=== PATIENT | male | born 1955 | race Caucasian/White ===

== ENCOUNTER 2017-07-16 13:53 | Emergency (ER) | payer OTHER, BC ==
[~2017-07-16] VITALS: Ht 172.7 cm; Wt 87.3 kg
[~2017-07-16 13:53] MED LIST: FISH500C PO; HYDR-3533 PO; INSULIN PUMP; LISI2.5T3 PO; MELO7.5T PO; SIMV5TAB32 PO; [UNRECOGNIZED DRUG - OTHER]
[2017-07-16 14:04] VITALS: BP 138/66; PULSE 84; RESP 16; TEMP 98.7; O2SAT 97
[2017-07-16] MEDS ORDERED: LIDOCAINE HCL 1% 50 ML VIAL INFIL ONE (14:15)
[2017-07-16] MEDS ORDERED: BUPIVACAINE HCL PF 0.5% 10 ML VIAL INFIL ONE (14:15)
--- NOTE | 2017-07-16 14:16 | PD ---
HPI Chief Complaint: Laceration/Skin Injury Time Seen by Provider: 14:10 Travel History International Travel<30 days: No Contact w/Intl Traveler<30days: No Traveled to known affect area: No History of Present Illness HPI 62-year-old male presents to the emergency department for evaluation of a laceration to his left dorsal thumb that occurred approximately noon today. He states he cut it using a saw-zal. Patient states his tetanus immunization was 2 -3 years ago. He denies a loss range of motion of the affected digit. He has history of hypertension, hyperlipidemia, diabetes type 1 with insulin pump. Patient denies any other injury. PFSH Past Medical History Hx Anticoagulant Therapy: Yes (LOW DOSE ASA) Arthritis: Yes Depression: No High Cholesterol: Yes Diabetes: Yes Diminished Hearing: No GERD: Yes Hypertension: Yes Reproductive: No Respiratory: No Migraines: Yes ?: Not Past Surgical History Abdominal Surgery: Yes (APPENDECTOMY) Appendectomy: Yes Eye Surgery: Yes (VITRECTOMY 11/11/12) Insulin Pump: Yes Neurologic Surgery: Yes (TITANIUM PLATE IN NECK) Other Surgery: Yes (BILAT. ELBOWS, SHOULDERS) Social History Alcohol Use: Yes (5 PER WEEK) Tobacco Use: No Substance Use: No Allergies-Medications (Allergen,Severity, Reaction): Coded Allergies: No Known Allergies (Unverified , 07/16/17) Reported Meds & Prescriptions Reported Meds & Active Scripts Active Keflex (Cephalexin) 500 Mg Cap 500 Mg PO Q6H 7 Days Reported Aspirin Low Dose (Aspirin) 81 Mg Chew 81 Mg CHEW DAILY Eql Cinnamon (Cinnamon) 500 Mg Cap 2,000 Mg PO BID Glucosamine (Glucosamine Sulfate) 500 Mg Cap 500 Mg PO DAILY Magnesium Oxide 400 Mg Tab 400 Mg PO BID [place]-3 Fish Oil/Vitamin (Fish Oil-Cholecalciferol) 1,000-1,000 Mg Cap 2 Cap PO DAILY Multiple Vitamin 1 Tab 1 Tab PO DAILY Lortab (Hydrocodone-Acetaminophen) 10-325 Mg Tab 1 Tab PO Q4H PRN Ambien (Zolpidem Tartrate) 5 Mg Tab 5 Mg PO HS PRN Hydrochlorothiazide 12.5 Mg Tab 12.5 Mg PO DAILY Lisinopril 40 Mg Tab 40 Mg PO DAILY Novolog Inj (Insulin Aspart) 1,000 Unit/10 Ml Vial 0 SQ DIRECTED Sliding Scale as directed. Omeprazole 40 Mg Cap 40 Mg PO BID Allergy Relief (Loratadine) 10 Mg Tab 10 Mg PO DAILY Review of Systems Except as stated in HPI: all other systems reviewed are Neg Physical Exam Narrative GENERAL: Well-nourished, well-developed male patient, ambulatory. Afebrile. SKIN: Focused skin assessment warm/dry. Patient has 2.5 cm laceration to the left dorsal thumb between the MCP and PIP joint. No active bleeding. HEAD: Normocephalic. Atraumatic. EYES: No scleral icterus. No injection or drainage. NECK: Supple, trachea midline. No JVD or lymphadenopathy. CARDIOVASCULAR: Regular rate and rhythm without murmurs, gallops, or rubs. RESPIRATORY: Breath sounds equal bilaterally. No accessory muscle use. Lungs sounds are clear to auscultation. GASTROINTESTINAL: Abdomen soft, non-tender, nondistended. MUSCULOSKELETAL: No cyanosis, or edema. Patient has full strength in the affected digit. He has full flexion and extension of the affected digit. BACK: Nontender without obvious deformity. No CVA tenderness. Data Data Last Documented VS Vital Signs Date Time Temp Pulse Resp B/P (MAP) Pulse Ox O2 Delivery O2 Flow Rate FiO2 07/16/17 14:04 98.7 84 16 138/66 (90) 97 Orders Orders Finger ([id number]) (07/16/17 ) Bupivacaine Pf 0.5% Inj (Marcaine Pf 0.5 (07/16/17 14:15) Lidocaine 1% Inj (50 Ml) (Xylocaine 1% I (07/16/17 14:15) MDM Medical Decision Making Medical Screen Exam Complete: Yes Emergency Medical Condition: Yes Interpretation(s) Last Impressions Finger X-Ray 07/16/17 0000 Signed Impressions: Service Date/Time: Sunday, July 16, 2017 14:18 - CONCLUSION: Negative for fracture or foreign body. Arron Brenner MD FACR Differential Diagnosis Laceration versus abrasion versus tendon laceration versus foreign body versus open fracture Narrative Course 62-year-old male presents to the emergency department for evaluation of laceration to his left thumb. He gives verbal consent for laceration repair. X -rays completed which shows no foreign body or any injury. Patient is instructed on proper wound care. He will be discharged with a prescription for Keflex for prophylaxis as patient is insulin-dependent diabetic. Patient verbalizes agreement and understanding. The patient was discharged in stable condition with instructions, including return instructions and follow up instructions. Procedures Procedure Narrative LACERATION LOCATION: Left thumb LENGTH: 2.5 cm NUMBER OF STITCHES/CRISTY: 4 simple interrupted sutures REPAIR: The area of the laceration was prepped with Betadine and sterilely draped. The laceration was infiltrated with 1% lidocaine and 0.5% bupivacaine. The wound was copiously irrigated and explored without evidence of foreign body , tendon injury or neurovascular injury. The wound was closed using 4-0 Prolene. This was a single layer repair. A sterile dressing was applied. The patient was advised to keep the dressing clean and dry. Patient tolerated the procedure well. Diagnosis Primary Impression: Finger laceration Qualified Codes: S61.012A - Laceration without foreign body of left thumb without damage to nail, initial encounter Referrals: Primary Care Physician call for appointment Patient Instructions: Care For Your Stitches (ED), Finger Laceration (ED), General Instructions Additional Instructions: Clean laceration twice daily with soap and water and apply [id number] antibiotic. No peroxide. Keep clean and dry. No swimming or hot tubs. Take antibiotic as directed until gone. Suture removal in 7-10 days. Follow-up with your primary care physician. Return to the emergency department for any acute worsening of symptoms. Med/Other Pt SpecificInfo: Prescription(s) given Scripts Cephalexin (Keflex) 500 Mg Cap 500 MG PO Q6H for Infection for 7 Days, #28 CAP 0 Refills Prov: Evangelina Sykes 07/16/17 Disposition: 01 DISCHARGE HOME Condition: Stable Evangelina Sykes Jul 16, 2017 14:16
[2017-07-16] MEDS ORDERED: ALLE10TA PO (14:32)
[2017-07-16] MEDS ORDERED: LISI40TA PO (14:32)
[2017-07-16] MEDS ORDERED: OMEP40CA2 PO (14:32)
[2017-07-16] MEDS ORDERED: OMEGCAP PO (14:32)
[2017-07-16] MEDS ORDERED: MULTTAB67 PO (14:32)
[2017-07-16] MEDS ORDERED: NOVOLOGP2 SQ (14:32)
[2017-07-16] MEDS ORDERED: ASPI81CH37 CHEW (14:32)
[2017-07-16] MEDS ORDERED: HYDR-3535 PO (14:32)
[2017-07-16] MEDS ORDERED: AMBI5TAB PO (14:32)
[2017-07-16] MEDS ORDERED: GLUC500C5 PO (14:32)
[2017-07-16] MEDS ORDERED: CINN500C13 PO (14:32)
[2017-07-16] MEDS ORDERED: MAGN400T2 PO (14:32)
[2017-07-16] MEDS ORDERED: HYDR12.56 PO (14:32)
--- NOTE | 2017-07-16 14:42 | RADRPT ---
EXAM DATE/TIME: 07/16/2017 14:18 [facility] COMPARISON: No previous studies available for comparison. INDICATIONS : Left thumb laceration after using a saw. MEDICAL HISTORY : None. SURGICAL HISTORY : Left 4th digit ampuation ENCOUNTER: Initial ACUITY: 1 day PAIN SCORE: 5/10 LOCATION: Left thumb FINDINGS: Degenerative changes without radiopaque foreign body or fracture. CONCLUSION: Negative for fracture or foreign body. Arron Brenner MD FACR on July 16, 2017 at 14:40 Board Certified Radiologist. This report was verified electronically.
[2017-07-16] MEDS ORDERED: CEPH-460 PO (15:04)
== END 2017-07-16 15:13 | disposition home or self-care (01) ==
LOC: PHED 13:53
DX: S61.012A Laceration without foreign body of left thumb without damage to nail, initial encounter (principal); I10 Essential (primary) hypertension; E10.9 Type 1 diabetes mellitus without complications; E78.00 Pure hypercholesterolemia, unspecified; Z79.4 Long term (current) use of insulin; Z79.82 Long term (current) use of aspirin; Z87.39 Personal history of other diseases of the musculoskeletal system and connective tissue; Z87.19 Personal history of other diseases of the digestive system; Z86.69 Personal history of other diseases of the nervous system and sense organs; W29.8XXA Contact with other powered hand tools and household machinery, initial encounter
CPT/HCPCS: 12001; 73140